=== PATIENT | male | born 1985 | race Hispanic/Latino ===

== ENCOUNTER 2021-05-08 06:02 | Emergency (ER) | payer OTHER ==
[2021-05-08] MEDS ORDERED: ALBUTEROL 2.5 MG/3 ML NEB SOL ONE (07:13)
[2021-05-08] MEDS ORDERED: IPRATROPIUM BROM 0.5MG/2.5ML ONE (07:13)
[2021-05-08] MEDS ORDERED: METHYLPREDNISOLONE 125 MG INJ ONE (07:13)
[2021-05-08 07:24] LABS: Absolute Lymphocytes (CBC) 0.6 K/uL (0.7-4.9); Basophils % 0.1 % (0-1.3); Hematocrit 38.9 % (39.6-49.0); Lymphocytes % 11.8 % (15.3-44.8); MPV 6.7 fL (7.6-11.3); RBC Red Blood Cell Count 4.29 M/uL (4.33-5.43)
[2021-05-08 07:46] LABS: ALT/SGPT 79 U/L (12-78); AST/SGOT 77 U/L (15-37); Alkaline Phosphatase 71 U/L (45-117); BUN Blood Urea Nitrogen 8 mg/dL (7-18); Bicarbonate 29 mmol/L (21-32); Bilirubin Direct < 0.1 mg/dL (0-0.2); Bilirubin Total 0.3 mg/dL (0.2-1.0); Ferritin 1413.8 ng/mL (26-388); Glucose Level 113 mg/dL (74-106); Lipase 91 U/L (73-393); Potassium 3.6 mmol/L (3.5-5.1); Protein, Total 7.2 g/dL (6.4-8.2); Sodium Level 137 mmol/L (136-145); Troponin (Emerg Dept Use Only) < 0.02 ng/mL (0.0-0.045)
[2021-05-08] MEDS ORDERED: HYDROCODONE/CHLORPHEN 5 ML/OSYR ONE (07:55)
--- NOTE | 2021-05-08 08:51 | RAD REPORT ---
EXAM DESCRIPTION: CT - Chest For Pe Angio - 05/08/2021 8:23 am CLINICAL HISTORY: Chest pain. SOB COMPARISON: No comparisons TECHNIQUE: CT angiogram of the pulmonary arteries was performed with MIP. All CT scans are performed using dose optimization technique as appropriate and may include automated exposure control or mA/KV adjustment according to patient size. FINDINGS: No evidence of pulmonary thromboembolism. No acute aortic finding demonstrated. Areas of patchy alveolar opacity are present in both lungs along the periphery, greater on the left. No significant pericardial or pleural fluid. No concerning bony finding. IMPRESSION: No evidence of pulmonary thromboembolism. Patchy alveolar opacities are seen along the periphery of both lungs greatest in the lower lobes comp atible with underlying COVID-19 infection.
--- NOTE | 2021-05-08 09:24 | RAD REPORT ---
EXAM DESCRIPTION: RAD - Chest Single View - 05/08/2021 6:59 am CLINICAL HISTORY: SOB Chest pain. COMPARISON: No comparisons FINDINGS: Portable technique limits examination quality. Mild bilateral pulmonary opacities are present, greater on the left, likely representing infection/br onchitis. The heart is upper limit normal in size. No displaced fractures.
[2021-05-08] MEDS ORDERED: HYDROCODONE/APAP 5/325 MG TAB ONE (10:06)
--- NOTE | 2021-05-08 12:11 | EDPHYS ---
Physician Documentation [facility] Name: Taj Rosales Age: 36 yrs Sex: Male : 1985 Arrival Date: 05/08/2021 Time: 06:07 Bed 20 Private MD: ED Physician Fredis Monteiro HPI: 05/08 06:40 This 36 yrs old Male presents to ER via Ambulatory with complaints of pos for pm1 covid 19, Breathing Difficulty, Congestion, Cough. 06:40 The patient or guardian reports cough, with productive sputum. pm1 06:40 Onset: The symptoms/episode began/occurred 8 day(s) ago. Severity of symptoms: in the pm1 emergency department the symptoms are actually worse. Modifying factors: The symptoms are alleviated by nothing, the symptoms are aggravated by nothing. Associated signs and symptoms: Pertinent positives: Fever, body aches, chest pain with coughing, and shortness of breath. The patient has not experienced similar symptoms in the past. The patient has not recently seen a physician. Patient with exposure to covid positive coworkers. Started feeling ill 8 days ago with fever, body aches, and cough. Fever and body aches have improved but his cough has become productive and has started getting short of breath the past 2 days. He has been using his significant other's nebulizer machine yesterday with mild improvement. Historical: - Allergies: 06:35 No Known Allergies; bb - Home Meds: 06:35 None [Active]; bb - PMHx: 06:35 None; bb - PSHx: 06:35 finger surgery; bb - Immunization history:: Adult Immunizations up to date. - Social history:: Smoking status: Patient denies any tobacco usage or history of. ROS: 06:40 Cardiovascular: Negative for chest pain, palpitations, and edema. pm1 06:40 Neck: Negative for injury, pain, and swelling, Back: Negative for injury and pain, : Negative for injury, bleeding, discharge, and swelling, MS/Extremity: Negative for injury and deformity, Skin: Negative for injury, rash, and discoloration, Neuro: Negative for headache, weakness, numbness, tingling, and seizure. 06:40 Constitutional: Positive for body aches, fever, Negative for poor PO intake. 06:40 ENT: Negative for ear pain, sore throat. 06:40 Cardiovascular: Positive for chest pain, with cough, Negative for edema, palpitations. 06:40 Respiratory: Positive for cough, shortness of breath. 06:40 Abdomen/GI: Negative for abdominal pain, nausea, vomiting, and diarrhea. Exam: 06:40 Constitutional: This is a well developed, well nourished patient who is awake, alert, pm1 and in no acute distress. Head/Face: Normocephalic, atraumatic. 06:40 Back: No spinal tenderness. No costovertebral tenderness. Full range of motion. Skin: Warm, dry with normal turgor. Normal color with no rashes, no lesions, and no evidence of cellulitis. MS/ Extremity: Pulses equal, no cyanosis. Neurovascular intact. Full, normal range of motion. 06:40 Eyes: Exam is negative for acute changes, Periorbital structures: appear normal, Extraocular movements: no acute changes, Conjunctiva: no acute changes, no injection, Sclera: no acute changes, icterus, is not appreciated. 06:40 ENT: Exam is negative for acute changes, Mouth: Lips: normal, Oral mucosa: normal, pink and intact, moist. 06:40 Cardiovascular: Rate: tachycardic, Rhythm: regular, Pulses: no pulse deficits are appreciated. 06:40 Respiratory: mild respiratory distress is noted, Respirations: tachypnea, Breath sounds: bronchial sounds, that are mild, are heard diffusely. 06:40 Abdomen/GI: Inspection: abdomen appears normal, Palpation: abdomen is soft and non-tender, in all quadrants. 06:40 Neuro: Exam negative for acute changes, Orientation: is normal, Mentation: is normal, Motor: is normal, moves all fours. Vital Signs: 06:30 BP 138 / 89; Pulse 106; Resp 32 S; Temp 98.5(O); Pulse Ox 91% on R/A; Weight 99.79 kg bb (R); Height 5 ft. 8 in. (172.72 cm) (R); Pain 10/10; 07:00 BP 117 / 79; Pulse 95; Resp 26; Pulse Ox 96% on Nebulizer Mask; ph 08:00 BP 120 / 69; Pulse 97; Resp 28; Pulse Ox 93% on 2 lpm NC; ph 09:03 BP 127 / 83; Pulse 98; Resp 26; Pulse Ox 93% on 2 lpm NC; ph 09:45 Pulse Ox 84% on R/A; ph 10:05 BP 126 / 90; Pulse 89; Resp 20; Pulse Ox 89% on R/A; ph 10:46 BP 117 / 82; Pulse 80; Resp 20; Pulse Ox 89% on R/A; ph 11:44 BP 110 / 65; Pulse 71; Resp 20; Pulse Ox 91% on R/A; ph 06:30 Body Mass Index 33.45 (99.79 kg, 172.72 cm) bb 10:46 pt asleep ph MDM: 06:21 [facility] 08:12 Data reviewed: vital signs. pm1 12:08 ED course: Patient with saturation 94-95 on RA. Patient denies shortness of breath and pm1 would like to go home. Educated the patient on return precautions. present at bedside and supports his decision. 12:08 ED course: Patient was offered admission due to initial low oxygen saturation levels pm1 and tachypnea, but he reports felling markedly better and wants to go home. 05/08 06:37 Order name: BMP 05/08 06:37 Order name: Blood Culture Adult (2) pm05/08 06:37 Order name: C-Reactive Protein 05/08 06:37 Order name: CBC with Diff 05/08 06:37 Order name: D-Dimer 05/08 06:37 Order name: Ferritin; Complete Time: 07:48 pm05/08 06:37 Order name: Flu; Complete Time: 08:28 pm05/08 06:37 Order name: LFT's; Complete Time: 07:48 pm05/08 06:37 Order name: Lactate; Complete Time: 07:48 pm05/08 06:37 Order name: Lipase; Complete Time: 07:48 pm05/08 06:37 Order name: PT-INR; Complete Time: 08:28 pm05/08 06:37 Order name: Procalcitonin; Complete Time: 08:28 pm05/08 06:37 Order name: Ptt, Activated; Complete Time: 08:28 pm05/08 06:37 Order name: Strep; Complete Time: 08:28 pm05/08 06:37 Order name: Troponin (emerg Dept Use Only); Complete Time: 07:48 pm1 05/08 06:37 Order name: CXR XRAY; Complete Time: 09:27 pm1 05/08 06:37 Order name: EKG; Complete Time: 06:38 pm1 05/08 06:37 Order name: Cardiac monitoring; Complete Time: 07:14 pm1 05/08 06:37 Order name: Basic Metabolic Panel; Complete Time: 07:48 EDMS 05/08 06:37 Order name: Blood Culture EDMS 05/08 06:37 Order name: C-Reactive Protein; Complete Time: 07:48 EDMS 05/08 06:37 Order name: CBC with Automated Diff; Complete Time: 07:48 EDMS 05/08 06:37 Order name: D-Dimer; Complete Time: 08:28 EDMS 05/08 07:49 Order name: CT Chest For PE Angio; Complete Time: 08:53 pm1 05/08 07:54 Order name: Throat Culture EDMS 05/08 06:37 Order name: Droplet/Contact Precautions; Complete Time: 07:14 pm1 05/08 06:37 Order name: EKG - Nurse/Tech; Complete Time: 07:14 pm1 05/08 06:37 Order name: IV Start; Complete Time: 07:14 pm1 05/08 06:37 Order name: Labs collected and sent; Complete Time: 07:14 pm1 05/08 06:37 Order name: O2 Per Protocol; Complete Time: 07:14 pm1 05/08 06:37 Order name: O2 Sat Monitoring; Complete Time: 07:14 pm1 Administered Medications: 07:13 Drug: SOLU-Medrol (methylPrednisoLONE) 125 mg Route: IVP; Site: right antecubital; ph 11:52 Follow up: Response: No adverse reaction ph 07:13 Drug: Albuterol - atroVENT (ipratropium) (3:1) (2.5 mg - 0.5 mg) 3 ml Route: Nebulizer; ph 11:52 Follow up: Response: No adverse reaction ph 07:13 Drug: Tussionex Pennkinetic ER (chlorpheniramine-hydrocodone) Suspension 5 ml Route: PO;ph 11:52 Follow up: Response: No adverse reaction; Marked relief of symptoms ph 09:46 Drug: HYDROcodone-acetaminophen 5 mg-325 mg 1 tabs Route: PO; ph 11:52 Follow up: Response: No adverse reaction ph Disposition: 05/09 07:12 Co-signature as Attending Physician, Fredis Monteiro MD I agree with the assessment and ronald plan of care. Disposition Summary: 05/08/21 12:10 Discharge Ordered Location: Home pm1 Problem: new pm1 Symptoms: have improved pm1 Condition: Stable pm1 Diagnosis - Pneumonia due to SARS-associated coronavirus pm1 Followup: pm1 - With: Emergency Department - When: As needed - Reason: Worsening of condition Followup: pm1 - With: Private Physician - When: 2 - 3 days - Reason: Recheck today's complaints, Continuance of care, Re-evaluation by your physician Discharge Instructions: - Discharge Summary Sheet pm1 - COVID-19 pm1 Forms: - Medication Reconciliation Form pm1 - Thank You Letter pm1 - Antibiotic Education pm1 - Prescription Opioid Use pm1 - Work release form ph Prescriptions: - Ventolin HFA 90 mcg/actuation Inhalation HFA aerosol inhaler - inhale 2 puff by INHALATION route every 4-6 hours As needed; 1 Inhaler; pm1 Refills: 0, Product Selection Permitted - Prednisone 20 mg Oral Tablet - take 3 tablets by ORAL route once daily for 5 days; 15 tablet; Refills: 0, pm1 Product Selection Permitted - Albuterol Sulfate 2.5 mg /3 mL (0.083 %) Inhalation Solution for Nebulization - inhale 1 unit by NEBULIZATION route every 8 hours As needed; 1 box; Refills: 0, pm1 Product Selection Permitted - Guaifenesin AC 10-100 mg/5 mL Oral Liquid - take 10 milliliters by ORAL route every 4 hours As needed; 240 milliliter; pm1 Refills: 0, Product Selection Permitted Signatures: Dispatcher [employer] Fredis Ames MD MD cha Ballard, Brenda, RN RN Karuna Corona RN RN Edi Mancuso, REMED[employer]OS JEWELRY CASTING MODEL MAKER APPRENTICE pm1
--- NOTE | 2021-05-08 12:11 | ER ---
Nurse's Notes [facility] Name: Taj Rosales Age: 36 yrs Sex: Male : 1985 Arrival Date: 05/08/2021 Time: 06:07 Bed 20 Private MD: Diagnosis: Pneumonia due to SARS-associated coronavirus Presentation: 05/08 06:30 Chief complaint: Patient states: he started feeling bad Friday his co-workers were bb diagnosed with COVID so he got tested on Friday and was positive now he is having more difficulty breathing and is feeling worse. Coronavirus screen: cough unrelated to allergies, difficulty breathing, muscle pain, shortness of breath, Client reports previous positive COVID test result. Ebola Screen: No symptoms or risks identified at this time. Initial Sepsis Screen: Does the patient meet any 2 criteria? RR > 20 per min. HR > 90 bpm. Does the patient have a suspected source of infection? Yes: Productive cough/pneumonia If YES to both, name of provider notified: Edi Edwards CLERK. Risk Assessment: Do you want to hurt yourself or someone else? Patient reports no desire to harm self or others. Onset of symptoms was May 08, 2021. 06:30 Method Of Arrival: Ambulatory bb 06:30 Acuity: FAROOQ 3 bb Triage Assessment: 12:45 General: Appears in no apparent distress. comfortable. Respiratory: Onset: The ph symptoms/episode began/occurred yesterday, the patient has mild shortness of breath. Historical: - Allergies: 06:35 No Known Allergies; bb - Home Meds: 06:35 None [Active]; bb - PMHx: 06:35 None; bb - PSHx: 06:35 finger surgery; bb - Immunization history:: Adult Immunizations up to date. - Social history:: Smoking status: Patient denies any tobacco usage or history of. Screenin:12 Abuse screen: Denies threats or abuse. Denies injuries from another. Nutritional ph screening: No deficits noted. Tuberculosis screening: No symptoms or risk factors identified. Fall Risk None identified. Assessment: 07:30 General: Appears in no apparent distress. uncomfortable, well groomed, Behavior is ph calm, cooperative, appropriate for age, Reports feeling ill for 12-24 hours. Pain: Complains of pain in back and chest. Neuro: Level of Consciousness is awake, alert, obeys commands, Oriented to person, place, time, situation. Cardiovascular: Capillary refill < 3 seconds in bilateral fingers Patient's skin is warm and dry. Rhythm is sinus tachycardia. Respiratory: Reports shortness of breath at rest cough that is pain with cough pain with respiration Airway is patent Respiratory effort is even, labored, Respiratory pattern is tachypnea. GI: No signs and/or symptoms were reported involving the gastrointestinal system. Derm: Skin is intact, is healthy with good turgor, Skin is pink, warm \\T\\ dry. Musculoskeletal: Circulation, motion, and sensation intact. Range of motion: intact in all extremities. 09:03 Reassessment: Patient appears in no apparent distress at this time. Patient and/or ph family updated on plan of care and expected duration. Pain level reassessed. Patient is alert, oriented x 3, equal unlabored respirations, skin warm/dry/pink. 10:01 Reassessment: Patient appears in no apparent distress at this time. Patient and/or ph family updated on plan of care and expected duration. Pain level reassessed. Pt currently off of NC, noted to desaturate to 84% RA, went in to assess pt, pt appears to be resting comfortably, states, " Every time I doze off the alarm rings." Spo2 increased to 90% while pt is awake. Will continue to monitor. 10:46 Reassessment: Patient appears in no apparent distress at this time. Patient and/or ph family updated on plan of care and expected duration. Pain level reassessed. Pt resting quietly w/ eyes closed, Spo2 89% while asleep. 11:51 Reassessment: Patient appears in no apparent distress at this time. Patient and/or ph family updated on plan of care and expected duration. Pain level reassessed. 11:52 Reassessment: REMEDIOS Daley at bedside to speak w/ pt. ph 12:45 Respiratory: Breath sounds are clear bilaterally. ph Vital Signs: 06:30 BP 138 / 89; Pulse 106; Resp 32 S; Temp 98.5(O); Pulse Ox 91% on R/A; Weight 99.79 kg bb (R); Height 5 ft. 8 in. (172.72 cm) (R); Pain 10/10; 07:00 BP 117 / 79; Pulse 95; Resp 26; Pulse Ox 96% on Nebulizer Mask; ph 08:00 BP 120 / 69; Pulse 97; Resp 28; Pulse Ox 93% on 2 lpm NC; ph 09:03 BP 127 / 83; Pulse 98; Resp 26; Pulse Ox 93% on 2 lpm NC; ph 09:45 Pulse Ox 84% on R/A; ph 10:05 BP 126 / 90; Pulse 89; Resp 20; Pulse Ox 89% on R/A; ph 10:46 BP 117 / 82; Pulse 80; Resp 20; Pulse Ox 89% on R/A; ph 11:44 BP 110 / 65; Pulse 71; Resp 20; Pulse Ox 91% on R/A; ph 06:30 Body Mass Index 33.45 (99.79 kg, 172.72 cm) bb 10:46 pt asleep ph ED Course: 06:07 Patient arrived in ED. es 06:20 Edi Edwards NP is PHCP. pm1 06:20 Fredis Monteiro MD is Attending Physician. pm1 06:35 Triage completed. bb 06:35 Arm band placed on Patient placed in an exam room, on a stretcher, on pulse oximetry. bb Family accompanied patient. 06:59 CXR XRAY In Process Unspecified. EDMS 07:04 Karuna Whitmore, RN is Primary Nurse. ph 07:12 Patient has correct armband on for positive identification. Bed in low position. Call ph light in reach. Side rails up X 1. satellite project site monitor on. Pulse ox on. NIBP on. Door closed. Noise minimized. Warm blanket given. 07:13 Initial lab(s) drawn, by ED staff. Inserted saline lock: 20 gauge in right antecubital ph area, using aseptic technique. Blood collected. 08:23 CT Chest For PE Angio In Process Unspecified. EDMS 12:45 No provider procedures requiring assistance completed. IV discontinued, intact, ph bleeding controlled, No redness/swelling at site. Administered Medications: 07:13 Drug: SOLU-Medrol (methylPrednisoLONE) 125 mg Route: IVP; Site: right antecubital; ph 11:52 Follow up: Response: No adverse reaction ph 07:13 Drug: Albuterol - atroVENT (ipratropium) (3:1) (2.5 mg - 0.5 mg) 3 ml Route: Nebulizer; ph 11:52 Follow up: Response: No adverse reaction ph 07:13 Drug: Tussionex Pennkinetic ER (chlorpheniramine-hydrocodone) Suspension 5 ml Route: PO;ph 11:52 Follow up: Response: No adverse reaction; Marked relief of symptoms ph 09:46 Drug: HYDROcodone-acetaminophen 5 mg-325 mg 1 tabs Route: PO; ph 11:52 Follow up: Response: No adverse reaction ph Outcome: 12:10 Discharge ordered by MD. pm1 12:45 Discharged to home ambulatory. ph 12:45 Condition: stable 12:45 Discharge instructions given to patient, family, Instructed on discharge instructions, follow up and referral plans. medication usage, Demonstrated understanding of instructions, follow-up care, medications, Prescriptions given X 4. 12:51 Patient left the ED. ph Signatures: Dispatcher [employer] Jennifer Vaz Brenda, RN RN bb Hall, Patricia, RN RN ph Marinas, Patrick, REMEDIOS CLERK pm1
[2021-05-08 13:02] VITALS: TEMP 98.5
[2021-05-08 13:15] VITALS: BP 110/65; O2SAT 91
--- NOTE | 2021-05-09 10:45 | EKG ---
Test Date: 2021-05-08 Test Time: 07:07:55 Inner Tube Inserter: MEASUREMENT RESULTS: Intervals: Rate: 98 [place]: 128 QRSD: 98 QT: 350 QTc: 446 [place]: P: 36 [place]: 128 QRS: -1 T: 20 INTERPRETIVE STATEMENTS: Normal sinus rhythm Normal ECG No previous ECG available for comparison Electronically Signed On 05-09-21 10:42:04 CDT by Curtis Sierra
== END 2021-05-08 12:51 | disposition home or self-care (01) ==
LOC: ER 06:02
DX: U07.1 COVID-19 (principal); J12.82 Pneumonia due to coronavirus disease 2019
CPT/HCPCS: 93005; 87040 ×2; 87070; 85025; 80048; 36415; 85610; 85379; 80076; 87081; 83605; 85730; 84484; 82728; 83690; 84145; 86140; 87804 ×2; 71275; 71045; 96374; 99285; Q9967; J2930